=== PATIENT | male | born 1945 | race Caucasian/White ===

== ENCOUNTER → 2018-11-28 | Outpatient (CLI) | payer MEDICARE ==
[2018-11-28 17:38] LABS: CLARITY,URINE CLEAR; COLOR,URINE YELLOW
[2018-11-28 17:39] LABS: BACTERIA,URINE NEGATIVE /HPF; BILIRUBIN,URINE NEGATIVE (NEGATIVE); GLUCOSE, URINE (UA) NEGATIVE (NEGATIVE); KETONES,URINE NEGATIVE (NEGATIVE); LEUKOCYTE ESTERASE ,URINE NEGATIVE (NEGATIVE); NITRITE,URINE NEGATIVE (NEGATIVE); PROTEIN,URINE NEGATIVE (NEGATIVE); SQUAMOUS EPITHELIAL CELL,UR RARE /HPF; UROBILINOGEN,URINE 0.2 MG/DL (NORMAL); WBC,URINE 0-2 /HPF
== END ==
LOC: LAB FS 15:45
PROVIDERS: ATTEND Family Medicine
DX: R39.15 Urgency of urination (principal); R82.90 Unspecified abnormal findings in urine
CPT/HCPCS: 81000

== ENCOUNTER → 2018-12-10 | Outpatient (CLI) | payer MEDICARE ==
[2018-12-10 13:29] LABS: CLARITY,URINE CLEAR; COLOR,URINE ORANGE
[2018-12-10 13:30] LABS: GLUCOSE, URINE (UA) TRACE (NEGATIVE); KETONES,URINE TRACE (NEGATIVE); NITRITE,URINE NEGATIVE (NEGATIVE); PROTEIN,URINE TRACE (NEGATIVE)
[2018-12-10 13:32] LABS: BACTERIA,URINE NEGATIVE /HPF; BILIRUBIN,URINE 3+ (NEGATIVE); LEUKOCYTE ESTERASE ,URINE NEGATIVE (NEGATIVE); RBC,URINE RARE /HPF; SQUAMOUS EPITHELIAL CELL,UR 0-2 /HPF; WBC,URINE 0-2 /HPF
[2018-12-10 13:35] LABS: BASOPHILS % (AUTO) 1 % (0-10); EOSINOPHILS % (AUTO) 2 % (0-10); HEMATOCRIT 25 % (40-54); HEMOGLOBIN 8.5 G/DL (13.3-17.7); LYMPHOCYTES # (AUTO) 1.4 X 10^3 (1.0-4.0); LYMPHOCYTES % (AUTO) 18 % (12-44); MEAN CORPUSCULAR HEMOGLOBIN 31 PG (25-34); MEAN CORPUSCULAR HGB CONC 34 G/DL (32-36); MEAN CORPUSCULAR VOLUME 89 FL (80-99); MONOCYTES # (AUTO) 0.6 X 10^3 (0.0-1.0); MONOCYTES % (AUTO) 7 % (0-12); NEUTROPHILS # (AUTO) 5.7 X 10^3 (1.8-7.8); NEUTROPHILS % (AUTO) 72 % (42-75); PLATELET COUNT 344 10^3/uL (130-400); RED CELL DISTRIBUTION WIDTH 18.9 % (10.0-14.5); WHITE BLOOD COUNT 7.9 10^3/uL (4.3-11.0)
[2018-12-10 13:36] LABS: EOSINOPHILS # (AUTO) 0.1 10^3/uL (0.0-0.3)
== END ==
LOC: IHC 12:57
PROVIDERS: ATTEND Family Medicine
DX: M62.81 Muscle weakness (generalized) (principal); I10 Essential (primary) hypertension; R82.90 Unspecified abnormal findings in urine
CPT/HCPCS: 36415; 81000; 85025